=== PATIENT | male | born 1940 ===

== ENCOUNTER 2018-05-22 06:57 | Inpatient (IN) | payer MEDICARE, OTHER ==
[2018-05-22] VITALS (15 sets, daily range): BP systolic 106–167; BP diastolic 54–89
[~2018-05-22] VITALS: Ht 177.8 cm; Wt 104.8 kg
[~2018-05-22 06:57] MED LIST: ceFAZolin 1gm in D5W 55ml IVP ONE; celeBREX 200mg Cap **SURGERY PATIENTS ONLY ORAL ONE; oxyCONTIN 20mg tab ORAL ONE
[2018-05-22] MEDS ORDERED: Bacitracin 50000 Units Vial ONE ×2 (07:03→10:48)
[2018-05-22] MEDS ORDERED: NeoSporin Gu Irrig 1ml Amp IRRIG ONE ×2 (07:03→10:48)
--- NOTE | 2018-05-22 07:09 | Pre-Procedure Note/Attestation ---
Pre-Procedure Note/Attestation Complete Prior to Procedure Planned Procedure: left Procedure Narrative: Left total knee arthroplasty Indications for Procedure Pre-Operative Diagnosis: Left knee arthritis Attestation I attest that I discussed the nature of the procedure; its benefits; risks and complications; and alternatives (and the risks and benefits of such alternatives ), prior to the procedure, with the patient (or the patient's legal field representative/health education). I attest that, if there was a reasonable possibility of needing a blood transfusion, the patient (or the patient's legal field representative/health education) was given the [facility] standardized written summary, pursuant to the [place] Blood Safety Act ([place] Health and Safety Code # 1645, as amended). I attest that I re-evaluated the patient just prior to the surgery and that there has been no change in the patient's H&P, except as documented below: NONE Josse Cueto MD May 22, 2018 07:09
[2018-05-22] MEDS ORDERED: Milk of Magnesia 30ml Ud ORAL PRN (07:30)
[2018-05-22] MEDS ORDERED: CARISOPRODOL350 MG ORAL (07:34)
[2018-05-22] MEDS ORDERED: VITAMIN D35000 UNI2 PO (07:34)
[2018-05-22] MEDS ORDERED: LOSARTAN POTAS100 MG ORAL (07:34)
[2018-05-22] MEDS ORDERED: ATORVASTATIN CA40 MG ORAL (07:34)
[2018-05-22] MEDS ORDERED: ASPIR 8181 MG ORAL (07:34)
[2018-05-22] MEDS ORDERED: HYDROCHLOROTHIA25 MG ORAL (07:34)
[2018-05-22] MEDS ORDERED: cloNIDine 1000mcg/10ml inj ONE (07:44)
[2018-05-22] MEDS ORDERED: Bupivacaine w/Epi 0.5% 30ml Vial INJ ONE (07:44)
[2018-05-22] MEDS ORDERED: EPINEPHrine 1mg/1ml Amp ONE (07:53)
[2018-05-22] MEDS ORDERED: LR 1000ml 1,000 ML IVLG SCH (08:01)
[2018-05-22] MEDS ORDERED: Dexamethasone 4mg/ml vial ONE (08:06)
[2018-05-22] MEDS ORDERED: Sodium Chloride 10ml vial INJ ONE (08:06)
[2018-05-22] MEDS ORDERED: Lidocaine 1% MPF 10mg/ml 5ml ONE ×2 (08:06→08:40)
[2018-05-22] MEDS ORDERED: Alfentanil 2ml Inj ONE (08:07)
[2018-05-22] MEDS ORDERED: oxyCONTIN 20mg tab ORAL ONE (08:08)
[2018-05-22] MEDS ORDERED: Hydromorphone 0.5mg/0.5ml inj IVP PRN (08:15)
[2018-05-22] MEDS ORDERED: Metoclopramide 10mg/2ml Inj IVP PRN (08:15)
[2018-05-22] MEDS ORDERED: LORazepam Inj 2mg/ml 1ml IV PRN (08:15)
[2018-05-22] MEDS ORDERED: fentaNYL 100 mcg/2 mL IV PRN (08:15)
[2018-05-22] MEDS ORDERED: Midazolam 2mg/2ml Inj IVP PRN (08:15)
[2018-05-22] MEDS ORDERED: Meperidine 50mg/ml Inj(FOR RIGORS ONLY) IVP PRN (08:15)
[2018-05-22] MEDS ORDERED: HYDROcodone/Acetamin 7.5/325 tab ORAL PRN ×2 (08:15→14:52)
[2018-05-22] MEDS ORDERED: Tranexamic Acid(Epistaxis Use) TOPIC ONE (08:15)
[2018-05-22] MEDS ORDERED: Norco 5mg/325mg tab ORAL PRN ×2 (08:15→14:53)
[2018-05-22] MEDS ORDERED: oxyCODONE HCL/Acetaminophen 5/325mg ORAL PRN (08:15)
[2018-05-22] MEDS ORDERED: Labetalol 5mg/ml 20ml vial IV PRN (08:15)
[2018-05-22] MEDS ORDERED: Atropine Sulfate 0.4mg/ml inj IVP PRN (08:15)
[2018-05-22] MEDS ORDERED: DiphenhydrAMINE 50mg/ml Inj IVP PRN (08:15)
--- NOTE | 2018-05-22 08:15 | Anethesia Preoperative Eval ---
Anesthesia Pre-op PMH/ROS General Date of Evaluation: May 22, 2018 Time of Evaluation: 08:16 Anesthesiologist: Franky ASA Score: ASA 3 Mallampati Score Class I : Soft palate, uvula, fauces, pillars visible Class II: Soft palate, uvula, fauces visible Class III: Soft palate, base of uvula visible Class IV: Only hard plate visible Mallampati Classification: Class II Surgeon: Nory Diagnosis: L Knee Pain Surgical Procedure: L Total Knee Arthroplasty Anesthesia History: none Family History: no anesthesia problems Allergies: Coded Allergies: No Known Allergies (Unverified , 05/21/18) Medications: see eMAR Past Medical History Cardiovascular: Reports: HTN Other: obesity - BMI 35 Anesthesia Pre-op Phys. Exam Physician Exam Last Vital Signs Date Time Temp Pulse Resp B/P (MAP) Pulse Ox O2 Delivery O2 Flow Rate FiO2 05/22/18 07:45 97.5 84 20 167/73 (104) 96 97.5 05/22/18 07:35 Room Air Constitutional: NAD Neurologic: CN 2-12 intact Cardiovascular: RRR Respiratory: CTA Gastrointestinal: S/NT/ND Airway Exam Mallampati Score: Class II MO: full ROM: limited Teeth: missing, intact Anesthesia Pre-op A/P Risk Assessment & Plan Assessment: ASA 3 Plan: GA, SED, Spinal Status Change Before Surgery: No Pre-Antibiotics Dru Grams Ancef IV Given Within 1 Hr of Incision: Yes Time Given: 08:56 Daren Avalos MD May 22, 2018 08:15
[2018-05-22] MEDS ORDERED: Sterile Water Irrig 1000ml IRRIG ONE (08:16)
[2018-05-22] MEDS ORDERED: NS Irrig 1000ml ONE (08:16)
[2018-05-22] MEDS ORDERED: NS Irrig 2000ml IRRIG ONE (08:16)
--- NOTE | 2018-05-22 08:16 | Immediate Post-Op Evaluation ---
Immediate Post-Op Evalulation Immediate Post-Op Evalulation Procedure: L Total Knee Arthroplasty Date of Evaluation: May 22, 2018 Time of Evaluation: 11:52 IV Fluids: 1000 LR Blood Products: 0 Estimated Blood Loss: 25 Urinary Output: 0 Blood Pressure Systolic: 145 Blood Pressure Diastolic: 66 Pulse Rate: 88 Respiratory Rate: 16 O2 Sat by Pulse Oximetry: 98 Temperature (Fahrenheit): 99.2 Pain Score (1-10): 1 Nausea: No Vomiting: No Complications 0 Patient Status: awake, reacts, patent, none Hydration Status: adequate Dru Grams Ancef IV Given Within 1 Hr of Incision: Yes Time Given: 08:56 Daren Avalos MD May 22, 2018 08:16
[2018-05-22] MEDS ORDERED: Propofol 200mg/20ml IV ONE (08:19)
[2018-05-22] MEDS ORDERED: Tranexamic Acid 1,000 MG in NS 55 ML IVPB ONE (08:30)
[2018-05-22] MEDS: celeBREX 200mg Cap **SURGERY PATIENTS ONLY ORAL SCH (09:00)
[2018-05-22] MEDS ORDERED: ePHEDrine 50mg/ml Inj ONE ×2 (09:05→09:08)
--- NOTE | 2018-05-22 11:29 | Brief Operative Note ---
Immediate Post Operative Note Operative Note Chief Complaint: left knee pain Pre-op Diagnosis: left knee arthritis Procedure: left total knee arthroplasty Post-op Diagnosis: same as pre-op Findings: consistent w/pre-op dx studies Surgeon: md raciel Security Installer: brittni brannon Anesthesiologist: md darrion Anesthesia: general Specimen: yes Complications: none Condition: stable Fluids: ns Estimated Blood Loss: minimal Drains: wound vac Implant(s) used?: Yes - biomet/olivia Apoorva Brannon May 22, 2018 11:29
[2018-05-22 13:13] LABS: HEMATOCRIT 40.5 % (42.0-52.0); HEMOGLOBIN 13.4 G/DL (14.2-18.0); MEAN CORPUSCULAR VOLUME 92 FL (80-99); PLATELET COUNT 155 K/UL (150-450); RED BLOOD COUNT 4.42 M/UL (4.70-6.10); RED CELL DISTRIBUTION WIDTH 12.4 % (11.6-14.8); WHITE BLOOD COUNT 10.5 K/UL (4.8-10.8)
[2018-05-22] MEDS ORDERED: HYDROmorphone 1mg/ml Carpuject SUBQ PRN (14:52)
--- NOTE | 2018-05-22 16:19 | Diagnostic Imaging Report ---
Indication: Reason For Exam: POST-OP knee pain, status post knee arthroplasty Technique: 2 views of the left knee Comparison: none Findings: There is a total knee arthroplasty prosthesis in good position, well aligned. There is gas within soft tissues, presumably retained air from the surgical exposure. Impression: Postoperative left knee, no unusual features
[2018-05-22] MEDS: ceFAZolin sod 1 GM in D5W 55 ML IV SCH (16:37)
[2018-05-22] MEDS: D5 1/2NS w/KCl 20mEq 1,000 ML IV SCH (16:37)
[2018-05-22] MEDS: Docusate 100mg cap ORAL SCH (18:08)
[2018-05-22] MEDS: Atorvastatin 20mg tab ORAL SCH (21:15)
[2018-05-22] MEDS: Enoxaparin 30mg Inj SUBQ SCH (21:20)
--- NOTE | 2018-05-22 23:00 | Operative Note - Dictated ---
DATE OF OPERATION: 05/22/2018 PREOPERATIVE DIAGNOSIS: Left knee end-stage arthritis. POSTOPERATIVE DIAGNOSIS: Left knee end-stage arthritis. PROCEDURE: Left total knee arthroplasty using [employer] Person[employer] system, size 8 left femur, size G tibia, size 9 mm thick 35 mm diameter patellar component, and a 10 mm tibial poly insert. SURGEON: Josse Cueto M.D. RENAL NURSE: Apoorva Linda PA-C. ANESTHESIOLOGIST: Daren Avalos M.D. ANESTHESIA: Spinal anesthesia. ESTIMATED BLOOD LOSS: Less than 160 mL. TOURNIQUET TIME: 70 minutes. COMPLICATIONS: None. BRIEF HISTORY: The patient is a pleasant 78-year-old gentleman who has had ongoing left knee pain. He failed nonoperative treatment. After full discussion of risks and benefits of the surgery and complications associated with it including infection, bleeding, neurovascular complication, possibility of DVT and PEs, infection requiring resection, arthroplasty, possible need for further surgery including revision arthroplasty, possibility of implant loosening, and need for other invasive procedures, he opted for surgical treatment as described above. OPERATIVE PROCEDURE: The patient was brought to the operative room table and was placed supine. All pressure points were well padded. Spinal anesthesia was induced. The left leg was prepped and draped in the usual sterile fashion. The left leg was exsanguinated and tourniquet was inflated to 275 mmHg. A standard anterior approach to the knee was undertaken. Medial parapatellar arthrotomy was performed. The patella was everted and the medial releases were performed. Medial lateral meniscectomy was performed. The fat pad was resected. The knee was then flexed and intramedullary access into the femur was obtained. Intramedullary guide was placed in and with 6 degrees of valgus and a standard distal cut was performed with 6 degrees of valgus. Subsequently, measurements were made and size 8 appeared to be the right size. The knee was placed in about 3 degrees external rotation and the guide was applied in 3 degrees external rotation and the anterior, posterior and chamfer cuts were performed without any complications. At this point, a femoral trial was applied and this was fitted very well. PEG holes were drilled while lateralizing the femoral component slightly. Once this was completed, care was given to the tibial side. The posterior medial lateral retractors were placed in. The ACL and PCL were resected. The anterior tibial crest was then palpated and used as a guide and extramedullary guide was used, 2 mm was taken off the most involved side, which was the medial side. A standard tibial cut was performed in neutral position while recreating anatomical axis while protecting the collateral ligament, posterior structure, as well as patellar tendon. Once the cut was performed, flexion-extension gap was checked and appeared to be perfect with 10 mm gap content checker. There was good full flexion and full extension and stable stability both in extension and 90 degrees of flexion. At this point, sizing of the tibia was performed and size G appeared to be the right size. This was placed about 3 degrees external rotation and the central PEG was then initially drilled and then punched. At this point, care was given to the patella. The patella was measured and appeared to measure 28 mm. The standard patellar cut was performed using a freehand technique, and 14 mm patella was remaining. The sizing was performed and 35 mm patella appeared to be the right size. The PEG holes were drilled while medializing the patella slightly. Once this was completed, all trial components including femur, tibia, and patella were applied. A 10 mm poly insert was applied and there was full extension, full flexion, excellent stability at 0, 30 degrees, 45 degrees, and 90 degrees. The range of motion was excellent. The patellofemoral tracking was excellent. At this point, all trial components were removed. The knee was thoroughly irrigated using Simpulse irrigation. The cement was mixed and the tibial component, femoral component, and patellar components were all cemented and all excess cement was removed. The 10 mm insert was used to compress the femur and the tibia. Once the cement hardened, all excess cement was again removed and the knee was thoroughly irrigated. Trialing was performed and 10 mm patella appeared to be the right size. At this point, the trial components removed and actual ultra cross-linked poly was then used. A 10 mm ultra cross-linked poly was then locked in and the knee was assured over and over again that the locking mechanisms well engaged. Once this was completed, wounds were thoroughly irrigated using copious amount of fluid. The tourniquet was deflated and all bleeders were stopped. There was minimal bleeding. The extensor mechanism was closed using #1 Vicryl suture, subcutaneous tissue was closed using 2-0 Vicryl suture, and skin was closed using 3-0 Monocryl suture. A standard KCI wound Vac was applied to remove any hematoma or excess fluid. At this point, the knee immobilizer was applied and the patient was taken to the recovery room in stable condition. All lap counts and instrument counts were correct. Josse Cueto M.D. DR: VASQUEZ JOB#: [id number] CC: SCOTT
[2018-05-23] VITALS (7 sets, daily range): BP systolic 106–145; BP diastolic 56–72
[2018-05-23] MEDS: ceFAZolin sod 1 GM in D5W 55 ML IV SCH (00:55)
[2018-05-23] MEDS: D5 1/2NS w/KCl 20mEq 1,000 ML IV SCH (03:16)
[2018-05-23 07:58] LABS: BASOPHILS % (AUTO) 0.1 % (0.0-2.0); HEMATOCRIT 37.9 % (42.0-52.0); HEMOGLOBIN 12.5 G/DL (14.2-18.0); LYMPHOCYTES % (AUTO) 12.1 % (20.0-45.0); MEAN CORPUSCULAR VOLUME 92 FL (80-99); MONOCYTES % (AUTO) 12.1 % (1.0-10.0); NEUTROPHILS % (AUTO) 75.6 % (45.0-75.0); PLATELET COUNT 163 K/UL (150-450); RED BLOOD COUNT 4.12 M/UL (4.70-6.10); RED CELL DISTRIBUTION WIDTH 12.1 % (11.6-14.8); WHITE BLOOD COUNT 13.3 K/UL (4.8-10.8)
--- NOTE | 2018-05-23 08:14 | Orthopedic Progress Note ---
Orthopedic - Progress Note Subjective Symptoms: improved, other - doing very well. up in chair doing knee exercises. slept well Objective Laboratory Tests Test 05/22/18 13:00 05/23/18 06:50 White Blood Count 10.5 K/UL (4.8-10.8) 13.3 K/UL (4.8-10.8) H Red Blood Count 4.42 M/UL (4.70-6.10) L 4.12 M/UL (4.70-6.10) L Hemoglobin 13.4 G/DL (14.2-18.0) L 12.5 G/DL (14.2-18.0) L Hematocrit 40.5 % (42.0-52.0) L 37.9 % (42.0-52.0) L Mean Corpuscular Volume 92 FL (80-99) 92 FL (80-99) Mean Corpuscular Hemoglobin 30.4 PG (27.0-31.0) 30.3 PG (27.0-31.0) Mean Corpuscular Hemoglobin Concent 33.2 G/DL (32.0-36.0) 32.9 G/DL (32.0-36.0) Red Cell Distribution Width 12.4 % (11.6-14.8) 12.1 % (11.6-14.8) Platelet Count 155 K/UL (150-450) 163 K/UL (150-450) Mean Platelet Volume 8.7 FL (6.5-10.1) 9.2 FL (6.5-10.1) Neutrophils (%) (Auto) % (45.0-75.0) 75.6 % (45.0-75.0) H Lymphocytes (%) (Auto) % (20.0-45.0) 12.1 % (20.0-45.0) L Monocytes (%) (Auto) % (1.0-10.0) 12.1 % (1.0-10.0) H Eosinophils (%) (Auto) % (0.0-3.0) 0.0 % (0.0-3.0) Basophils (%) (Auto) % (0.0-2.0) 0.1 % (0.0-2.0) Differential Total Cells Counted 100 Neutrophils % (Manual) 86 % (45-75) H Lymphocytes % (Manual) 9 % (20-45) L Monocytes % (Manual) 3 % (1-10) Eosinophils % (Manual) 0 % (0-3) Basophils % (Manual) 0 % (0-2) Band Neutrophils 2 % (0-8) Platelet Estimate Adequate Platelet Morphology Normal Red Blood Cell Morphology Normal Sodium Level Pending Potassium Level Pending Chloride Level Pending Carbon Dioxide Level Pending Blood Urea Nitrogen Pending Creatinine Pending Estimat Glomerular Filtration Rate Pending Glucose Level Pending Calcium Level Pending Last 24 Hour Vital Signs Date Time Temp Pulse Resp B/P (MAP) Pulse Ox O2 Delivery O2 Flow Rate FiO2 05/23/18 04:00 97.6 101 20 120/56 (77) 96 97.6 05/23/18 00:00 97.5 104 19 107/72 (84) 95 97.5 05/22/18 21:00 Nasal Cannula 3.0 05/22/18 20:00 97.1 108 20 106/54 (71) 94 97.1 05/22/18 16:00 97.5 104 18 124/89 (101) 98 97.5 05/22/18 14:30 97.3 105 18 134/71 (92) 96 97.3 05/22/18 14:00 97.3 102 18 126/66 (86) 96 97.3 05/22/18 13:45 97.6 102 18 127/65 (85) 96 97.6 05/22/18 13:45 Nasal Cannula 3.0 05/22/18 13:15 94 16 138/65 96 Nasal Cannula 3 05/22/18 13:00 92 16 135/64 95 Nasal Cannula 3 05/22/18 12:45 91 16 140/62 94 Nasal Cannula 3 05/22/18 12:30 88 16 139/62 98 Nasal Cannula 3 05/22/18 12:15 88 16 143/62 98 Simple Mask 8 05/22/18 12:00 86 16 136/61 98 Simple Mask 8 05/22/18 11:50 86 16 134/64 98 Simple Mask 8 05/22/18 11:45 86 16 139/65 98 Simple Mask 8 05/22/18 11:41 210.6 88 16 98 05/22/18 11:40 99.2 89 16 145/66 98 Simple Mask 8 99.2 Intake and Output 05/22/18 05/23/18 19:00 07:00 Intake Total 1330 ml 300 ml Output Total 800 ml 600 ml Balance 530 ml -300 ml Intake Oral 200 ml 300 ml IV Total 1130 ml Output Urine Total 775 ml 600 ml Estimated Blood Loss 25 ml Laboratory Tests Test 05/22/18 13:00 05/23/18 06:50 White Blood Count 10.5 K/UL (4.8-10.8) 13.3 K/UL (4.8-10.8) H Red Blood Count 4.42 M/UL (4.70-6.10) L 4.12 M/UL (4.70-6.10) L Hemoglobin 13.4 G/DL (14.2-18.0) L 12.5 G/DL (14.2-18.0) L Hematocrit 40.5 % (42.0-52.0) L 37.9 % (42.0-52.0) L Mean Corpuscular Volume 92 FL (80-99) 92 FL (80-99) Mean Corpuscular Hemoglobin 30.4 PG (27.0-31.0) 30.3 PG (27.0-31.0) Mean Corpuscular Hemoglobin Concent 33.2 G/DL (32.0-36.0) 32.9 G/DL (32.0-36.0) Red Cell Distribution Width 12.4 % (11.6-14.8) 12.1 % (11.6-14.8) Platelet Count 155 K/UL (150-450) 163 K/UL (150-450) Mean Platelet Volume 8.7 FL (6.5-10.1) 9.2 FL (6.5-10.1) Neutrophils (%) (Auto) % (45.0-75.0) 75.6 % (45.0-75.0) H Lymphocytes (%) (Auto) % (20.0-45.0) 12.1 % (20.0-45.0) L Monocytes (%) (Auto) % (1.0-10.0) 12.1 % (1.0-10.0) H Eosinophils (%) (Auto) % (0.0-3.0) 0.0 % (0.0-3.0) Basophils (%) (Auto) % (0.0-2.0) 0.1 % (0.0-2.0) Differential Total Cells Counted 100 Neutrophils % (Manual) 86 % (45-75) H Lymphocytes % (Manual) 9 % (20-45) L Monocytes % (Manual) 3 % (1-10) Eosinophils % (Manual) 0 % (0-3) Basophils % (Manual) 0 % (0-2) Band Neutrophils 2 % (0-8) Platelet Estimate Adequate Platelet Morphology Normal Red Blood Cell Morphology Normal Sodium Level Pending Potassium Level Pending Chloride Level Pending Carbon Dioxide Level Pending Blood Urea Nitrogen Pending Creatinine Pending Estimat Glomerular Filtration Rate Pending Glucose Level Pending Calcium Level Pending Wound: clean, dry, intact Drains: wound vac Neuro Status: normal Vascular Status: normal Additional Comments xray excellent Assessment Post-op Diagnosis POD 1 Procedure Performed left total knee arthroplasty Plan Plan: PT, continue drain, discharge plan - home on monday with DME and services Apoorva Linda May 23, 2018 08:14
[2018-05-23 08:28] LABS: ANION GAP 9 mmol/L (5-15); BLOOD UREA NITROGEN 27 mg/dL (7-18); CALCIUM 8.7 MG/DL (8.5-10.1); CARBON DIOXIDE 27 MMOL/L (21-32); CHLORIDE 104 MMOL/L (98-107); CREATININE 1.1 MG/DL (0.55-1.30); POTASSIUM 4.3 MMOL/L (3.5-5.1); SODIUM 140 MMOL/L (136-145)
[2018-05-23] MEDS: Losartan 50mg tab ORAL SCH (09:00)
[2018-05-23] MEDS: celeBREX 200mg Cap **SURGERY PATIENTS ONLY ORAL SCH (09:25)
[2018-05-23] MEDS: Docusate 100mg cap ORAL SCH ×3 (09:25→18:24)
[2018-05-23] MEDS: Enoxaparin 30mg Inj SUBQ SCH ×2 (09:26→21:09)
--- NOTE | 2018-05-23 12:47 | 48 Hour Post Anesthesia Eval ---
Post Anesthesia Evaluation Procedure: L Total Knee Arthroplasty Date of Evaluation: May 23, 2018 Time of Evaluation: 12:46 Blood Pressure Systolic: 118 0: 78 Pulse Rate: 68 Respiratory Rate: 22 Temperature (Fahrenheit): 97.6 O2 Sat by Pulse Oximetry: 98 Airway: patent Nausea: No Vomiting: No Pain Intensity: 2 Hydration Status: adequate Cardiopulmonary Status: stable Mental Status/LOC: patient returned to baseline Follow-up Care/Observations: n/a Post-Anesthesia Complications: none Follow-up care needed: N/A Star Marroquin MD May 23, 2018 12:47
--- NOTE | 2018-05-23 20:50 | Consultation ---
History of Present Illness General Date patient seen: May 23, 2018 Time patient seen: 20:46 Chief Complaint: INTERNAL MEDICIEN CONSULT Present Illness Allergies: Coded Allergies: No Known Allergies (Unverified , 05/21/18) Medication History Scheduled Aspirin* (Aspir 81*), 81 MG ORAL DAILY, (Reported) Atorvastatin Calcium* (Atorvastatin Calcium*), 40 MG ORAL BEDTIME, (Reported) Carisoprodol* (Carisoprodol*), 350 MG ORAL Q6H, (Reported) Cholecalciferol (Vitamin D3) (Vitamin D3), 5,000 UNIT PO DA, (Reported) Hydrochlorothiazide* (Hydrochlorothiazide*), 25 MG ORAL DAILY, (Reported) Losartan Potassium (Losartan Potassium), 100 MG ORAL DAILY, (Reported) Patient History Limited by: other - HYPERTENSION, OBESITY, SNORING OA HIP DEGNERATIVE DISC DISEASE Healthcare decision maker ANUEL CHO- Resuscitation status Full Code Advanced Directive on File No Review of Systems Constitutional: Reports: no symptoms ENT: Reports: no symptoms Respiratory: Reports: no symptoms Cardiovascular: Reports: no symptoms ROS Narrative HAS HIP PAIN NO FEVER NO CHILLS Physical Exam General Appearance: WD/WN HEENT: normocephalic Neck: other - THICK NECK Respiratory/Chest: lungs clear Cardiovascular/Chest: normal rate Abdomen: non tender, soft Extremities: other - KNEE HAS A ELZBIETA Last 24 Hour Vital Signs Date Time Temp Pulse Resp B/P (MAP) Pulse Ox O2 Delivery O2 Flow Rate FiO2 05/23/18 16:00 97.2 96 18 130/62 (84) 94 97.2 05/23/18 12:47 207.7 68 22 98 05/23/18 12:00 97.0 90 20 106/64 (78) 97 97.0 05/23/18 09:07 101 114/63 (80) 05/23/18 09:00 114/63 05/23/18 09:00 Nasal Cannula 3.0 05/23/18 08:00 97.4 104 19 119/59 (79) 95 97.4 05/23/18 04:00 97.6 101 20 120/56 (77) 96 97.6 05/23/18 00:00 97.5 104 19 107/72 (84) 95 97.5 05/22/18 21:00 Nasal Cannula 3.0 Intake and Output 05/22/18 05/23/18 19:00 07:00 Intake Total 1330 ml 300 ml Output Total 800 ml 600 ml Balance 530 ml -300 ml Intake Oral 200 ml 300 ml IV Total 1130 ml Output Urine Total 775 ml 600 ml Estimated Blood Loss 25 ml Laboratory Tests Test 05/23/18 06:50 White Blood Count 13.3 K/UL (4.8-10.8) H Red Blood Count 4.12 M/UL (4.70-6.10) L Hemoglobin 12.5 G/DL (14.2-18.0) L Hematocrit 37.9 % (42.0-52.0) L Mean Corpuscular Volume 92 FL (80-99) Mean Corpuscular Hemoglobin 30.3 PG (27.0-31.0) Mean Corpuscular Hemoglobin Concent 32.9 G/DL (32.0-36.0) Red Cell Distribution Width 12.1 % (11.6-14.8) Platelet Count 163 K/UL (150-450) Mean Platelet Volume 9.2 FL (6.5-10.1) Neutrophils (%) (Auto) 75.6 % (45.0-75.0) H Lymphocytes (%) (Auto) 12.1 % (20.0-45.0) L Monocytes (%) (Auto) 12.1 % (1.0-10.0) H Eosinophils (%) (Auto) 0.0 % (0.0-3.0) Basophils (%) (Auto) 0.1 % (0.0-2.0) Sodium Level 140 MMOL/L (136-145) Potassium Level 4.3 MMOL/L (3.5-5.1) Chloride Level 104 MMOL/L (98-107) Carbon Dioxide Level 27 MMOL/L (21-32) Anion Gap 9 mmol/L (5-15) Blood Urea Nitrogen 27 mg/dL (7-18) H Creatinine 1.1 MG/DL (0.55-1.30) Estimat Glomerular Filtration Rate mL/min (>60) Glucose Level 165 MG/DL (74-106) H Calcium Level 8.7 MG/DL (8.5-10.1) Height (Feet): 5 Height (Inches): 10.00 Weight (Pounds): 231 Medications Current Medications Medications (Trade) Dose Ordered Sig/[place] Route PRN Reason Start Time Stop Time Status Last Admin Dose Admin Acetaminophen (Tylenol) 650 mg Q4H PRN ORAL temp>100.2 or headache 05/22/18 07:30 06/21/18 07:29 Acetaminophen/ Hydrocodone Bitart ([place] 5/325) 2 tab Q4H PRN ORAL pain scores 4-10 05/22/18 14:53 05/29/18 14:52 Acetaminophen/ Hydrocodone Bitart ([place] 7.5/325) 1 tab Q4H PRN ORAL Mild Pain (Pain Scale 1-3) 05/22/18 14:52 05/29/18 14:51 Atorvastatin Calcium (Lipitor) 40 mg BEDTIME ORAL 05/22/18 21:00 06/21/18 20:59 05/22/18 21:15 Celecoxib (CeleBREX) 200 mg DAILY ORAL 05/22/18 09:00 06/21/18 08:59 05/23/18 09:25 Docusate Sodium (Colace) 100 mg THREE TIMES A DAY ORAL 05/22/18 18:00 06/21/18 17:59 05/23/18 18:24 Enoxaparin Sodium (Lovenox) 30 mg EVERY 12 HOURS SUBQ 05/22/18 21:00 06/05/18 20:59 05/23/18 09:26 Ferrous Sulfate (Feosol) 325 mg THREE TIMES A DAY ORAL 05/22/18 18:00 06/21/18 17:59 05/23/18 18:24 Hydrochlorothiazide (Hydrodiuril) 25 mg DAILY ORAL 05/23/18 09:00 06/22/18 08:59 Hydromorphone HCl (Dilaudid) 1 mg Q4H PRN SUBQ Mild Pain (Pain Scale 1-3) 05/22/18 14:52 05/29/18 14:51 05/22/18 23:13 Hydromorphone HCl (Dilaudid) 2 mg Q4H PRN SUBQ Moderate Pain (Pain Scale 4-6) 05/22/18 14:52 05/29/18 14:51 05/23/18 15:13 Losartan Potassium (Cozaar) 100 mg DAILY ORAL 05/23/18 09:00 06/22/18 08:59 Magnesium Hydroxide (Mom) 30 ml DAILYPRN PRN ORAL Constipation 05/22/18 07:30 06/21/18 07:29 Ondansetron HCl (Zofran) 4 mg Q6H PRN IVP Nausea & Vomiting 05/22/18 07:30 06/21/18 07:29 Assessment/Plan Status Narrative s/p total knee arthroplasty perioperative blood loss hypertenisonhistory thick neck and snoring no historyfo sleep apnea will place him on o2 while sleeping Guillermo Lyons MD May 23, 2018 20:50
[2018-05-23] MEDS: Atorvastatin 20mg tab ORAL SCH (21:07)
[2018-05-24] VITALS: BP 132/77
[2018-05-24 04:00] VITALS: BP 129/63
[2018-05-24 08:00] VITALS: BP 134/77
[2018-05-24 08:00] LABS: BASOPHILS % (AUTO) 0.6 % (0.0-2.0); EOSINOPHILS % (AUTO) 0.2 % (0.0-3.0); HEMATOCRIT 33.5 % (42.0-52.0); HEMOGLOBIN 11.3 G/DL (14.2-18.0); LYMPHOCYTES % (AUTO) 19.5 % (20.0-45.0); MEAN CORPUSCULAR VOLUME 90 FL (80-99); MONOCYTES % (AUTO) 13.6 % (1.0-10.0); NEUTROPHILS % (AUTO) 66.2 % (45.0-75.0); PLATELET COUNT 117 K/UL (150-450); RED CELL DISTRIBUTION WIDTH 12.3 % (11.6-14.8); WHITE BLOOD COUNT 10.3 K/UL (4.8-10.8)
[2018-05-24] MEDS: Enoxaparin 30mg Inj SUBQ SCH ×2 (08:52→21:00)
[2018-05-24] MEDS: Docusate 100mg cap ORAL SCH ×3 (08:56→17:10)
[2018-05-24] MEDS: celeBREX 200mg Cap **SURGERY PATIENTS ONLY ORAL SCH (08:56)
[2018-05-24] MEDS: Losartan 50mg tab ORAL SCH (08:56)
--- NOTE | 2018-05-24 09:44 | Orthopedic Progress Note ---
Orthopedic - Progress Note Subjective Additional Comments some left knee pain, otherwise doing well. sitting in chair. Eating well Objective Last 24 Hour Vital Signs Date Time Temp Pulse Resp B/P (MAP) Pulse Ox O2 Delivery O2 Flow Rate FiO2 05/24/18 08:56 134/77 05/24/18 08:30 Nasal Cannula 3.0 05/24/18 08:00 97.9 110 18 134/77 (96) 94 97.9 05/24/18 04:00 98.2 103 18 129/63 (85) 96 98.2 05/24/18 00:00 98.3 103 18 132/77 (95) 95 98.3 05/23/18 21:00 Room Air 05/23/18 20:00 97.7 100 19 145/70 (95) 95 97.7 05/23/18 16:00 97.2 96 18 130/62 (84) 94 97.2 05/23/18 12:47 207.7 68 22 98 05/23/18 12:00 97.0 90 20 106/64 (78) 97 97.0 Intake and Output 05/23/18 05/24/18 19:00 07:00 Intake Total 600 ml 300 ml Balance 600 ml 300 ml Intake Oral 600 ml 300 ml # Voids 2 3 Laboratory Tests Test 05/23/18 13:00 05/24/18 07:24 Hemoglobin A1c 6.1 % (4.3-6.0) H White Blood Count 10.3 K/UL (4.8-10.8) Red Blood Count 3.70 M/UL (4.70-6.10) L Hemoglobin 11.3 G/DL (14.2-18.0) L Hematocrit 33.5 % (42.0-52.0) L Mean Corpuscular Volume 90 FL (80-99) Mean Corpuscular Hemoglobin 30.6 PG (27.0-31.0) Mean Corpuscular Hemoglobin Concent 33.8 G/DL (32.0-36.0) Red Cell Distribution Width 12.3 % (11.6-14.8) Platelet Count 117 K/UL (150-450) L Mean Platelet Volume 8.4 FL (6.5-10.1) Neutrophils (%) (Auto) 66.2 % (45.0-75.0) Lymphocytes (%) (Auto) 19.5 % (20.0-45.0) L Monocytes (%) (Auto) 13.6 % (1.0-10.0) H Eosinophils (%) (Auto) 0.2 % (0.0-3.0) Basophils (%) (Auto) 0.6 % (0.0-2.0) Wound: clean, dry, intact Drains: wound vac Neuro Status: normal Vascular Status: normal Assessment Post-op Diagnosis Left total knee arthroplasty doing well Plan Plan: PT, discharge plan, discharge to home Josse Cueto MD May 24, 2018 09:44
[2018-05-24 11:51] VITALS: BP 111/60
[2018-05-24 16:00] VITALS: BP 116/61
[2018-05-24 20:00] VITALS: BP 105/70
[2018-05-24] MEDS: Atorvastatin 20mg tab ORAL SCH (21:16)
[2018-05-25] VITALS: BP 105/70
[2018-05-25 04:00] VITALS: BP 114/64
[2018-05-25 07:10] LABS: BASOPHILS % (AUTO) 0.5 % (0.0-2.0); EOSINOPHILS % (AUTO) 1.4 % (0.0-3.0); HEMATOCRIT 32.2 % (42.0-52.0); HEMOGLOBIN 10.8 G/DL (14.2-18.0); MEAN CORPUSCULAR VOLUME 91 FL (80-99); MONOCYTES % (AUTO) 12.6 % (1.0-10.0); NEUTROPHILS % (AUTO) 57.5 % (45.0-75.0); PLATELET COUNT 127 K/UL (150-450); RED BLOOD COUNT 3.54 M/UL (4.70-6.10); RED CELL DISTRIBUTION WIDTH 12.3 % (11.6-14.8); WHITE BLOOD COUNT 9.2 K/UL (4.8-10.8)
[2018-05-25 08:00] VITALS: BP 120/70
--- NOTE | 2018-05-25 08:06 | Orthopedic Progress Note ---
Orthopedic - Progress Note Subjective Symptoms: improved Objective Laboratory Tests Test 05/25/18 05:52 White Blood Count 9.2 K/UL (4.8-10.8) Red Blood Count 3.54 M/UL (4.70-6.10) L Hemoglobin 10.8 G/DL (14.2-18.0) L Hematocrit 32.2 % (42.0-52.0) L Mean Corpuscular Volume 91 FL (80-99) Mean Corpuscular Hemoglobin 30.4 PG (27.0-31.0) Mean Corpuscular Hemoglobin Concent 33.5 G/DL (32.0-36.0) Red Cell Distribution Width 12.3 % (11.6-14.8) Platelet Count 127 K/UL (150-450) L Mean Platelet Volume 9.2 FL (6.5-10.1) Neutrophils (%) (Auto) 57.5 % (45.0-75.0) Lymphocytes (%) (Auto) 28.0 % (20.0-45.0) Monocytes (%) (Auto) 12.6 % (1.0-10.0) H Eosinophils (%) (Auto) 1.4 % (0.0-3.0) Basophils (%) (Auto) 0.5 % (0.0-2.0) Last 24 Hour Vital Signs Date Time Temp Pulse Resp B/P (MAP) Pulse Ox O2 Delivery O2 Flow Rate FiO2 05/25/18 04:00 98.5 97 18 114/64 (81) 93 98.5 05/24/18 21:00 Room Air 05/24/18 20:00 98.3 96 18 105/70 (82) 93 98.3 05/24/18 16:59 97.8 05/24/18 16:29 97.8 05/24/18 16:00 97.8 101 18 116/61 (79) 95 97.8 05/24/18 11:51 97.8 101 18 111/60 (77) 97 97.8 05/24/18 08:56 134/77 05/24/18 08:30 Nasal Cannula 3.0 Intake and Output 05/24/18 05/25/18 19:00 07:00 Intake Total 300 ml 250 ml Output Total 900 ml Balance 300 ml -650 ml Intake Oral 300 ml 250 ml Output Urine Total 900 ml # Voids 2 Laboratory Tests Test 05/25/18 05:52 White Blood Count 9.2 K/UL (4.8-10.8) Red Blood Count 3.54 M/UL (4.70-6.10) L Hemoglobin 10.8 G/DL (14.2-18.0) L Hematocrit 32.2 % (42.0-52.0) L Mean Corpuscular Volume 91 FL (80-99) Mean Corpuscular Hemoglobin 30.4 PG (27.0-31.0) Mean Corpuscular Hemoglobin Concent 33.5 G/DL (32.0-36.0) Red Cell Distribution Width 12.3 % (11.6-14.8) Platelet Count 127 K/UL (150-450) L Mean Platelet Volume 9.2 FL (6.5-10.1) Neutrophils (%) (Auto) 57.5 % (45.0-75.0) Lymphocytes (%) (Auto) 28.0 % (20.0-45.0) Monocytes (%) (Auto) 12.6 % (1.0-10.0) H Eosinophils (%) (Auto) 1.4 % (0.0-3.0) Basophils (%) (Auto) 0.5 % (0.0-2.0) Wound: clean, dry, intact Drains: wound vac Neuro Status: normal Vascular Status: normal Assessment Post-op Diagnosis POD 3 Procedure Performed left total knee arthroplasty Plan Plan: discharge to home Apoorva Linda May 25, 2018 08:06
--- NOTE | 2018-05-25 08:07 | Discharge Summary ---
Discharge Summary Hospital Course Date of Admission May 22, 2018 at 06:57 Date of Discharge 05/25/18 Admitting Diagnosis left knee arthritis HPI Luiz Harkins is a 78 year old male who was admitted on May 22, 2018 at 06 :57 for Primary Osteoarthritis Of The Left Knee Consultations MD Eloy Procedures Left TKA Hospital Course benign Discharge Condition Upon Discharge: improving, stable Discharge Disposition Patient was discharged to Home with Home Health(06) Apoorva Linda May 25, 2018 08:07
[2018-05-25] MEDS ORDERED: Enoxaparin 30mg Inj SUBQ SCH (09:00)
[2018-05-25 09:34] VITALS: BP 114/64
[2018-05-25] MEDS: Docusate 100mg cap ORAL SCH (09:34)
[2018-05-25] MEDS: Losartan 50mg tab ORAL SCH (09:34)
[2018-05-25] MEDS: celeBREX 200mg Cap **SURGERY PATIENTS ONLY ORAL SCH (09:35)
[2018-05-25] MEDS ORDERED: ENOXAPARIN30 MG/0.3 SUBQ (10:15)
== END 2018-05-25 11:46 | disposition home health service (06) | DRG 470 ==
LOC: SDSOVERFLO 06:57 → 3E 13:45
PROC: 0SRD0J9 Replacement of Left Knee Joint with Synthetic Substitute, Cemented, Open Approach (ICD-10-PCS; principal; 2018-05-22 08:30)
DX: M17.12 Unilateral primary osteoarthritis, left knee (principal); I10 Essential (primary) hypertension; E66.9 Obesity, unspecified; Z68.33 Body mass index [BMI] 33.0-33.9, adult; M16.10 Unilateral primary osteoarthritis, unspecified hip; D50.0 Iron deficiency anemia secondary to blood loss (chronic); J44.9 Chronic obstructive pulmonary disease, unspecified; G47.33 Obstructive sleep apnea (adult) (pediatric)
CPT/HCPCS: 36415; 80048; 83036; 85007; 85025; 86850; 86900; 86901; 87081; 94003; 94150; J2405; J3490